=== PATIENT | female | born 1945 | race African-American/Black ===

== ENCOUNTER 2025-01-10 13:51 | Outpatient (AMB) | payer OTHER, SELFPAY ==
--- NOTE | 2025-01-10 14:02 | MHC.OFFVIS ---
Vital Signs 01/10/25 14:04 Height 5 ft 6 in Weight 183 lb 4 oz BMI 29.6 BP 114/70 Blood Pressure Location Lt brachial Position Sitting Pulse 67 Pulse Source Pulse Oximeter Pulse Oximetry (%) 99 Oxygen Delivery Method Room Air Intake Visit Reasons: OA Intake Note: Patient presents today for a follow up for osteoarthritis of the knees. Allergies No Known Allergies Allergy (Verified 01/10/25 14:07) HPI HPI OA: Details: Gel injection wore off earlier in the year. She has difficulty with walking. She uses knee braces. She has takes Tylenol 650 mg 2 tablets during the day for pain relief with benefit. [facility] Medical History (Updated 01/10/25 @ 14:38 by Wilton Linares MD) Primary localized osteoarthritis of knee Family History (Updated 10/08/24 @ 13:19 by Viky Mendez [facility]) Paternal Grandfather Rheumatoid arthritis Social History (Updated 10/08/24 @ 13:20 by Viky Mendez [facility]) Household Members Other:: LIVES ALONE Alcohol intake: never Patient Tobacco Use Status: Never used Tobacco Current occupational status: retired Physical Exam Vital Signs: Last Vital Signs Pulse 67 01/10/25 14:04 BP 114/70 01/10/25 14:04 Pulse Ox 99 01/10/25 14:04 Oxygen Delivery Method Room Air 01/10/25 14:04 BMI result Body Mass Index 29.6 Const Other: General: Comfortable Skin: No lesions seen MSK: Tender to palpate bilateral knees. She has bony hypertrophy bilateral knees. Right knee flexion 45 degrees, left knee flexion 30 degrees. Uses cane to ambulate. Assessment & Plan Assessment & Plan (1) Primary localized osteoarthritis of knee: Comment: Bilateral. Severe osteoarthritis. She failed cortisone injections: CSI B/L 03/2022,11/2021,09/2022,07/2023. She had 8 months of benefit on hyaluronic acid injection Durolane given to her on 09/2024. Pain has progressed since earlier this year with reduced function. Pain is tolerable with Tylenol. Code(s): M17.10 - Unilateral primary osteoarthritis, unspecified knee Category: Medical Plan: Durolane PA bilateral knees Continue Tylenol 650 mg 2 tablets daily. She can increase frequency to Q 8 hourly PRN pain Return to clinic in 1 month or sooner if Durolane is approved Coding Level of Care Code Est Pt Level 3 (57383) Complex EM visit Add On G2211 Diagnoses Primary localized osteoarthritis of knee M17.10
[2025-01-10 14:04] VITALS: BP 114/70; PULSE 67; O2SAT 99; BMI 29.6
--- OUTSIDE RECORDS SUMMARY | 2025-01-10 14:34 | XMS_ITS ---
Author Name [facility] Organization Unknown Encounters Encounter Type Encounter Reason Primary Diagnosis Location Date Ambulatory [facility] [place] 01/04/2024 Ambulatory [facility] [place] 01/04/2024
--- OUTSIDE RECORDS SUMMARY | 2025-01-10 14:34 | XMS_ITS | Clinical Summary ---
Author Organization [facility] [address] [place] [address] [place] [phone] Phone Care Team Providers Care Engrosser Name Role Phone Jennifer Marks MD Primary Care Provider [phone] Allergies Active Allergy Reactions Criticality Noted Date Comments Atorvastatin 11/14/2018 intolerant Lovastatin 11/14/2018 Intolerant Pravastatin 11/14/2018 intolerant Simvastatin 11/14/2018 intolerant Medications rosuvastatin (CRESTOR) 10 mg tablet Take 1 tablet (10 mg total) by mouth at bedtime. 90 tablet 1 05/22/2024 Active aspirin 81 mg EC tablet Take 1 tablet (81 mg total) by mouth 1 (one) time each day. 90 tablet 08/10/2024 Active diclofenac (Cataflam) 50 mg tablet Take 1 tablet (50 mg total) by mouth 2 (two) times a day for 10 days. 20 each 10/03/2024 Active cyclobenzaprine (FLEXERIL) 10 mg tablet Take 1 tablet (10 mg total) by mouth at bedtime as needed for muscle spasms. 30 tablet 10/03/2024 Active indapamide (LOZOL) 2.5 mg tablet Take 1 tablet by mouth once daily 90 tablet 11/27/2024 Active amLODIPine (NORVASC) 10 mg tablet Take 1 tablet by mouth once daily 90 tablet 11/27/2024 Active lisinopril (PRINIVIL,ZESTR IL) 40 mg tablet Take 1 tablet by mouth once daily 90 tablet 11/27/2024 Active potassium chloride (KLOR-CON) 10 mEq CR tablet Take 1 tablet by mouth once daily 90 tablet 11/27/2024 Active celecoxib (CeleBREX) 200 mg capsule Take 1 capsule (200 mg total) by mouth 1 (one) time each day. 30 capsule 2 10/10/2024 01/09/20 25 Active Problems Problem Noted Date Diagnosed Date COVID-19 03/12/2022 Overview (05/30/2024): Home test positive, repeated at [facility] 03/12/22 Prediabetes 02/19/2021 Vitamin D deficiency 12/22/2018 Radiculitis of left cervical region 08/15/2013 Overview (05/30/2024): left C7 dermatome TIA (transient ischemic attack) 04/03/2010 Overview (05/30/2024): ?TIA, R corner mouth numb 03/30/10, neg w/u DJD (degenerative joint disease), lumbar 008 Lipoma 08/23/2007 Osteoarthrosis of knee 08/19/2006 Obesity (BMI 30.0-34.9) 08/17/2005 Essential hypertension, benign 08/10/2005 Hyperlipidemia 08/10/2005 Encounters Date Type Department Care Team Description 12/10/2024 Telephone Adult Medicine [address] [phone] Jennifer Marks MD Fatigue from Last 3 Months Immunizations Name Administration Dates Next Due Influenza Quadravalent, MDCK , 0.5ml, with preservative (Flucelvax) 6mo and older 04/27/2017 Influenza trivalent, 0.5mL ( Fluad) 65yo and older 04/06/2023,03/30/2022,04/10/2021,05/22,03/21/2018 Influenza trivalent, 0.5mL, preservative free (Fluarix; FluLaval; Fluzone) ages 6mo and older (Afluria) 3 years and older 03/06/2015,04/11/2014,03/12/2013,04/14,04/24/2010,03/25/2009,04/22/2008 ,06/10/2006 Influenza trivalent, recombi nant, 0.5mL, preservative free (Flublok) 18yo and older 03/21/2024 Pfizer (ages 12 & older) Biv alent, COVID-19 05/13/2022 Pneumococcal conjugate 13 va lent (Prevnar 13, PCV13) 2mo and older 10/17/2015 Pneumococcal polysaccharide 23 valent (Pneumovax 23) 2yo and older 08/15/2013 Td Tetanus diptheria (Tdvax) 7yo and older 03/21/2018 Tdap Tetanus diptheria acell ular pertussis (Boostrix; Adacel) 7yo and older 08/23/2007 Zoster recombinant (Shingrix ) 19yo and older 06/27/2021,02/05/2020 Surgical History Surgery Date Site/Laterality Comments FLEXIBLE SIGMOIDOSCOPY 01/12/2006 PROCEDURE: HISTORICAL FLEXIBLE SIGMOIDOSCOPY COLONOSCOPY 10/14/2009 PROCEDURE: HISTORICAL COLONOSCOPY; COMMENT: Normal COLONOSCOPY 07/06/2017 PROCEDURE: HISTORICAL COLONOSCOPY; COMMENT: Negative screening examination. TUBAL LIGATION PROCEDURE: HISTORICAL TUBAL LIGATION Medical History Medical History Date Comments Essential hypertension, benign 08/10/2005 D X:Essential hypertension, benign Other and unspecified hyperlipidemia 08/10/2005 DX:Other and unspecified hyperlipidemia Obesity, unspecified 08/17/2005 DX:Obesity, unspecified Special screening for malign ant neoplasms, colon 10/14/2009 DX:Special screening for mal ignant neoplasms, colon Vitamin D deficiency 12/22/2018 DX:Vitamin D deficiency Family History Medical History Relation Name Comments Hypertension Brother Heart attack Daughter 1 Hypertension Daughter 1 No Known Problems Daughter 2 Hypertension Father Stroke Father No Known Problems Maternal Grandfather No Known Problems Maternal Grandmother CABG Mother Cataracts Mother Coronary artery disease Mother No Known Problems Paternal Grandfather No Known Problems Paternal Grandmother Colon cancer Sister 1 Hypertension Sister 1 Hypertension Sister 2 Other: kidney failure Sister 2 No Known Problems Sister 3 Blindness Neg Hx Breast cancer Neg Hx Glaucoma Neg Hx Macular degeneration Neg Hx Ovarian cancer Neg Hx Strabismus Neg Hx Relation Name Status Comments Brother Alive x1, HTN Daughter 1 Daughter 2 Alive Father (Age 83) stroke Maternal Grandfather Maternal Grandmother Mother 84 as of 5, HTN Paternal Grandfather Paternal Grandmother Sister 1 x2, HTN Sister 2 Sister 3 Alive Social History Tobacco Use Types Packs/Day Years Used Date Smoking Tobacco: Never Passive Smoke Exposure: Never Smokeless Tobacco: Never Alcohol Use Standard Drinks/Week Comments No 0 (1 standard drink = 0.6 oz pur e alcohol) Comments No Sex and Gender Information Value Date Recorded Sex Assigned at Not on file Legal Sex Female 6:49 PM EST Gender Identity Not on file Sexual Orientation Not on file Obstetrics History Last Filed Vital Signs Vital Sign Reading Time Taken Comments Blood Pressure 155/88 10/03/2024 2:06 PM EDT Pulse 80 10/03/2024 2:06 PM EDT Temperature 36.7 C (98 F) 10/03/2024 2:06 PM EDT Respiratory Rate 14 09/06/2024 3:33 PM EDT Oxygen Saturation 97% 10/03/2024 2:06 PM EDT Inhaled Oxygen Concentration - - Weight 83.9 kg (185 lb) 10/10/2024 1:47 PM EDT Height 165.1 cm (5' 5 ) 10/10/2024 1:47 PM EDT Body Mass Index 30.79 10/10/2024 1:47 PM EDT Plan of Treatment Upcoming Encounters Date Type Department Care Team (Late st Contact Info) Description 02/06/2025 3:30 PM EDT Office Visit Adult Medicine [address] [phone] Jennifer Marks MD [address] [place] [phone] Health Maintenance Due Date Last Done Comments Falls Risk Assessment 06/05/2022 Hepatitis C Screening 06/05/2022 Osteoporosis Screening (Bone Density Screening) 06/05/2022 Social Influencers of Health Screening 06/05/2022 RSV Immunization Adult Patients (1 - 1-dose 75+ series) 11/23/2022 COVID-19 Vaccine ( season) 2024 05/13/2022, 07/20/2021, 11/11/2020, Additional history exists Depression Screening 08/23/2024 08/23/2023 Medicare Annual Wellness Visit 08/23/2024 08/23/2023 Influenza Vaccine (#1) 2025 4, 04/06/2023, 03/30/2022, Additional history exists Hypertension/CHF/CAD Annual BMP Blood Test 08/10/2025 08/10/2024, 07/28/2022 DTaP,Tdap,and Td Vaccines (3 - Td or Tdap) 03/21/2028 03/21/2018, 08/23/2007 Cholesterol Screening (Lipid Panel) 08/10/2029 08/10/2024, 07/28/2022 Pneumococcal Vaccine: 50+ Years Completed 10/17/2015, 08/15/2013 Colorectal Cancer Screening: Colonoscopy Discontinued 07/06/2017, 10/14/2009, 10/14/2009 Zoster Vaccines Completed 06/27/2021, 02/05/2020 Breast Cancer Screening Discontinued 02/15/20 23, 02/11/2022, 07/30/2020, Additional history exists HIB Vaccines Aged Out No longer eligi ble based on patient's age to complete this topic HPV Vaccines Aged Out No longer eligi ble based on patient's age to complete this topic Hepatitis A Vaccines Aged Out No long er eligible based on patient's age to complete this topic Hepatitis B Vaccines Aged Out No long er eligible based on patient's age to complete this topic IPV Vaccines Aged Out No longer eligi ble based on patient's age to complete this topic MMR Vaccines Aged Out No longer eligi ble based on patient's age to complete this topic Meningococcal ACWY Vaccine Aged Out N o longer eligible based on patient's age to complete this topic Meningococcal B Vaccine Aged Out No l onger eligible based on patient's age to complete this topic RSV Immunization Patients Under 20 months Aged Out No longer eligible based on patient's age to complete this topic Varicella Vaccines Aged Out No longer eligible based on patient's age to complete this topic Procedures Procedure Name Priority Date/Time Associated Diagnosis Comments COMPREHENSIVE METABOLIC PANEL Routine 08/10/2024 2:54 PM EST Essential hypertension, benign LIPID PANEL WITH REFLEX TO DIRECT LDL Routine 08/10/2024 2:54 PM EST Mixed hyperlipidemia HM DEPRESSION SCREENING Routine 08/23/2023 SCREENING MAMMOGRAPHY BI 2-VIEW BREAST INC CAD Routine 02/14/2023 2:47 PM EDT Encounter for screening mammogram for malignant neoplasm of breast COLONOSCOPY Routine 10/14/2009 10:33 AM EDT from Last 3 Months or Most Recently Relevant to Health Maintenance Results * (ABNORMAL) Lipid panel with reflex to direct LDL (08/10/2024 2:54 PM EST) Cholesterol 268(H) 0 - 200 mg/dL LAB CHEMISTRY METHOD 08/10/2024 7:00 PM [facility] Triglycerides 74 0 - 150 mg/dL LAB CHEMISTRY METHOD 08/10/2024 7:00 PM [facility] HDL 107 >=40 mg/dL LAB CHEMISTRY METHOD 08/10/2024 7:00 PM [facility] LDL Calculated 146(H) 0 - 100 mg/dL LAB CHEMISTRY METHOD 08/10/2024 7:00 PM EST [facility] VLDL Cholesterol Ravinder 14.8 mg/dL LAB CHEMISTRY METHOD 08/10/2024 7:00 PM EST [facility] Non HDL Chol. (LDL+VLDL) 161(H) <145 mg/dL LAB CHEMISTRY METHOD 08/10/2024 7:00 PM [facility] Chol/HDL Ratio 2.5 0.0 - 4.4 LAB CHEMISTRY METHOD 08/10/2024 7:00 PM EST [facility] Blood Venous blood specimen / Unknown Venipuncture / Unknown 08/10/2024 2:54 PM EST 08/10/2024 2:54 PM EST us Jennifer Marks MD LAB BLOOD ORDERABLES Final Resul t [facility] [address] [place] [address], * (ABNORMAL) Comprehensive metabolic panel (08/10/2024 2:54 PM EST) Sodium 141 133 - 145 mmol/L LAB CHEMISTRY METHOD 08/10/2024 6:51 PM [facility] Potassium 3.8 3.5 - 5.5 mmol/L LAB CHEMISTRY METHOD 08/10/2024 6:51 PM [facility] Chloride 105 96 - 110 mmol/L LAB CHEMISTRY METHOD 08/10/2024 6:51 PM [facility] CO2 30 21 - 32 mmol/L LAB CHEMISTRY METHOD 08/10/2024 6:51 PM [facility] Anion Gap 6 3 - 11 LAB CHEMISTRY METHOD 08/10/2024 6:51 PM [facility] Glucose 109(H) 70 - 100 mg/dL LAB CHEMISTRY METHOD 08/10/2024 6:51 PM [facility] BUN 12 5 - 25 mg/dL LAB CHEMISTRY METHOD 08/10/2024 6:51 PM [facility] Creatinine 0.75 0.50 - 1.10 mg/dL LAB CHEMISTRY METHOD 08/10/2024 6:51 PM [facility] eGFR 83 >=60 mL/min/1. 73m2 LAB CHEMISTRY METHOD 08/10/2024 6:51 PM [facility] Comment:Calculation based on the Chronic Kidney Disease Epidemiology Collaboration (CKD-EPI) equation refit without adjustment for race. BUN/Creatinine Ratio 16.0 LAB CHEMISTRY METHOD 08/10/2024 6:51 PM [facility] Calcium 10.1 8.5 - 10.5 mg/dL LAB CHEMISTRY METHOD 08/10/2024 6:51 PM [facility] AST (SGOT) 17 10 - 42 unit/L LAB CHEMISTRY METHOD 08/10/2024 6:51 PM [facility] ALT (SGPT) 13 10 - 60 unit/L LAB CHEMISTRY METHOD 08/10/2024 6:51 PM [facility] Alkaline Phosphatase 99 42 - 121 unit/L LAB CHEMISTRY METHOD 08/10/2024 6:51 PM EST [facility] Total Protein 8.0 6.0 - 8.0 g/dL LAB CHEMISTRY METHOD 08/10/2024 6:51 PM EST [facility] Albumin 4.2 3.2 - 5.0 g/dL LAB CHEMISTRY METHOD 08/10/2024 6:51 PM EST [facility] Total Bilirubin 1.0 0.0 - 1.4 mg/dL LAB CHEMISTRY METHOD 08/10/2024 6:51 PM EST [facility] Blood Venous blood specimen / Unknown Venipuncture / Unknown 08/10/2024 2:54 PM EST 08/10/2024 2:54 PM EST Jennifer Marks MD LAB BLOOD ORDERABLES Final Resul t [facility] [address] [place] [address], [place] [phone] * Depression Screening (08/23/2023) Depression Screening Abstracted Historical Provider HEALTH MAINTENANCE Final Result * SCREENING MAMMOGRAPHY BI 2-VIEW BREAST INC CAD (02/14/2023 2:47 PM EDT) Anatomical Region Laterality Modality Radiographic Ivory ging 02/11/2022 3:12 PM EDT Narrative 02/15/2023 9:11 AM EDT This is a summary report. The complete report is available in the patient's medical record. If you cannot access the medical record, please contact the sending organization for a detailed fax or copy. Full field digital screening tomosynthesis mammography, reviewed with CAD and compared to previous. The breasts are composed of fatty and fibroglandular tissue. No suspicious mass, architectural distortion or suspicious calcifications are identified. IMPRESSION: : No mammographic evidence of malignancy. BIRADS 1-Negative; N. 5 year breast cancer risk assessment 1.4 % Lifetime breast cancer risk assessment 2.9 % Breast cancer risk category Low (<15%) Procedure Note Mariana Beaver MD - 08/01/2023 This is a summary report. The complete report is available in thepatient's medical record. If you cannot access the medical record, pleasecontact the sending organization for a detailed fax or copy. Full field digital screening tomosynthesis mammography, reviewed with CADand compared to previous. The breasts are composed of fatty andfibroglandular tissue. No suspicious mass, architectural distortion orsuspicious calcifications are identified. IMPRESSION: : No mammographic evidence of malignancy. BIRADS 1-Negative; N. 5 year breast cancer risk assessment 1.4 % Lifetime breast cancer risk assessment 2.9 % Breast cancer risk category Low (<15%) Eilu MONTE IMG XR PROCEDURES Final Result * COLONOSCOPY (10/14/2009 10:33 AM EDT) Anatomical Region Laterality Modality Endoscopy Historical Provider GI~PROCEDURE ORDERABLES F inal Result from Last 3 Months or Most Recently Relevant to Health Maintenance Insurance [place]ID - [place] [employer] [place] [employer] Care Teams Engrosser Relationship Specialty Start Date End Date Jennifer Marks MD [address] [place] [phone] PCP - General 10/29/22
== END 2025-01-10 14:38 | disposition home or self-care (01) ==
LOC: HO.RHES 13:51
PROVIDERS: PCP Internal Medicine; Visit Provider Internal Medicine Rheumatology
DX: M17.10 Unilateral primary osteoarthritis, unspecified knee (principal)
CPT/HCPCS: 99213; G2211

== ENCOUNTER 2025-02-13 14:32 | Outpatient (AMB) | payer OTHER, SELFPAY ==
[2025-02-13 14:35] VITALS: BP 150/90; PULSE 74; O2SAT 98; BMI 29.7
--- NOTE | 2025-02-13 14:35 | MHC.OFFVIS ---
Vital Signs 02/13/25 14:35 Height 5 ft 6 in Weight 183 lb 13.848 oz BMI 29.7 BP 150/90 H Pulse 74 Pulse Source Pulse Oximeter Pulse Oximetry (%) 98 Oxygen Delivery Method Room Air Intake Visit Reasons: knee pain/Durolane inj/MD Approved Intake Note: Patient presents today for a follow up for osteoarthritis of the knees. Accompanied by: Self / Same As Patient Allergies No Known Allergies Allergy (Verified 02/13/25 14:36) [facility] Medical History Primary localized osteoarthritis of knee Family History Paternal Grandfather Rheumatoid arthritis Social History Household Members Other:: LIVES ALONE Alcohol intake: never Patient Tobacco Use Status: Never used Tobacco Current occupational status: retired Physical Exam Vital Signs: Last Vital Signs Pulse 74 02/13/25 14:35 BP 150/90 H 02/13/25 14:35 Pulse Ox 98 02/13/25 14:35 Oxygen Delivery Method Room Air 02/13/25 14:35 BMI result Body Mass Index 29.7 Const Other: General: Comfortable Skin: No lesions seen MSK: Tender to palpate bilateral knees. She has bony hypertrophy bilateral knees. She has mild effusion of bilateral knees right worse than left. Cool. Right knee flexion 95 degrees, left knee flexion 90 degrees. Uses cane to ambulate. Office Procedures AMB Joint Injection/Aspiration Joint Injection/Aspiration Details: Bilateral knees Prep: site was prepped using aseptic technique Injected: Durolane was injected into each knee using 22 gauge 1-1/2 inch needle Procedure: Informed verbal consent was obtained. The patient tolerated the procedure well. Postprocedure protocol was discussed with patient. Coding 74721 - Bilateral Large Joint Procedure code (CPT) selection complete AMB Joint Injection/Aspiration Coding 64512 - Bilateral Large Joint Procedure code (CPT) selection complete Office Meds Durolane 60 mg/3 mL intra-articular syringe Performing Provider: Wilton Linares MD [place] [facility] Administered by: Wilton Linares MD on 02/13/25 15:31 Dose Route Admin Location Dispensed Lot Number Expiration Date NDC Template Storage Clerk 60 mg intra-articular 3 mL [id number] 05/26/27 [address]-2 [employer] Total Dispensed Waste 3 mL 0 % Durolane 60 mg/3 mL intra-articular syringe Performing Provider: Wilton Linares MD Per[place] [facility] Administered by: Wilton Linares MD on 02/13/25 15:32 Dose Route Admin Location Dispensed Lot Number Expiration Date [facility] Template Storage Clerk 60 mg intra-articular 3 mL [id number] 05/26/27 [address]-4 [employer] Total Dispensed Waste 3 mL 0 % Assessment & Plan Assessment & Plan (1) Primary localized osteoarthritis of knee: Comment: Pain is uncontrolled on Tylenol. Rheumatology history: Bilateral. Severe osteoarthritis. She failed cortisone injections: CSI B/L 03/2022,11/2021,09/2022,07/2023. She had 8 months of benefit on hyaluronic acid injection Durolane given to her on 09/2023. Uses Tylenol 650 mg b.i.d.. Code(s): M17.10 - Unilateral primary osteoarthritis, unspecified knee Category: Medical Plan: Patient received bilateral Durolane injections this visit Continue Tylenol 650 mg b.i.d. RTC 6 months Orders: Orders AMB Joint Injection/Aspiration 02/13/25 M17.10 - Unilateral primary osteoarthritis, unspecified knee AMB Joint Injection/Aspiration 02/13/25 M17.10 - Unilateral primary osteoarthritis, unspecified knee Coding Level of Care Code Est Pt Level 3 (29264) Complex EM visit Add On G2211 Diagnoses Primary localized osteoarthritis of knee M17.10 CPT Codes Coding - 61537 - Bilateral Large Joint: 59825 - Bilateral Large Joint ([id number]) Coding - 93937 - Bilateral Large Joint: 80812 - Bilateral Large Joint ([id number])
--- OUTSIDE RECORDS SUMMARY | 2025-02-13 15:29 | XMS_ITS | Clinical Summary ---
Author Organization [facility] [address] [place] [address] [place] [phone] Phone Care Team Providers Care Safety Investigator Name Role Phone Jennifer Marks MD Primary Care Provider [phone] Allergies Active Allergy Reactions Criticality Noted Date [...] mouth once daily 90 tablet 11/27/2024 Active Active Problems Problem Noted Date Diagnosed Date [...] Care Team Description 12/10/2024 Telephone Adult Medicine [address] [phone] Jennifer Marks MD Fatigue from [...] trivalent, recombi nant, 0.5mL, preservative free (Flublok) 9yo and older 03/21/2024 Pfizer (ages 12 & [...] Care Team (Late st Contact Info) Description 03/05/2025 11:00 AM EDT Office Visit Adult Medicine [address] [phone] Velia Medina PA [address] [place] [phone] Health Maintenance Due Date Last Done Comments Falls Risk Assessment 06/05/2022 Hepatitis C Screening 06/05/2022 Osteoporosis Screening (Bone Density Screening) 06/05/2022 Social Influencers of Health Screening 06/05/2022 RSV Immunization Adult Patients (1 - 1-dose 75+ series) 11/23/2022 COVID-19 Vaccine ( season) 2024 05/13/2022, 07/20/2021, 11/11/2020, Additional history exists Depression Screening 06/27/2024 08/23/2023 Medicare Annual Wellness Visit 08/23/2024 08/23/2023 Influenza Vaccine (#1) 2025 , 04/06/2023, 03/30/2022, Additional history exists Hypertension/CHF/CAD Annual BMP Blood Test 08/10/2025 08/10/2024, 07/28/2022 DTaP,Tdap,and Td Vaccines (3 - Td or Tdap) 03/21/2028 03/21/2018, 08/23/2007 Cholesterol Screening (Lipid Panel) 08/10/2029 08/10/2024, 07/28/2022 Pneumococcal Vaccine: 50+ Years Completed 10/17/2015, 08/15/2013 Colorectal Cancer Screening: Colonoscopy Discontinued 07/06/2017, 10/14/2009, 10/14/2009 Zoster Vaccines Completed 06/27/2021, 02/05/2020 Breast Cancer Screening Discontinued 02/15/20, 02/11/2022, 07/30/2020, Additional history exists HIB Vaccines [...] LAB CHEMISTRY METHOD 08/10/2024 7:00 PM EST [facility] Triglycerides 74 0 - 150 mg/dL LAB CHEMISTRY METHOD 08/10/2024 7:00 PM EST [facility] HDL 107 >=40 mg/dL LAB CHEMISTRY METHOD 08/10/2024 7:00 PM EST [facility] LDL Calculated 146(H) 0 - 100 mg/dL LAB CHEMISTRY METHOD 08/10/2024 7:00 PM [facility] VLDL Cholesterol Ravinder 14.8 mg/dL LAB CHEMISTRY METHOD 08/10/2024 7:00 PM EST [facility] Non HDL Chol. (LDL+VLDL) 161(H) <145 mg/dL LAB CHEMISTRY METHOD 08/10/2024 7:00 PM EST [facility] Chol/HDL Ratio 2.5 0.0 - 4.4 LAB CHEMISTRY METHOD 08/10/2024 7:00 PM EST [facility] Blood Venous blood specimen / Unknown Venipuncture / Unknown 08/10/2024 2:54 PM EST 08/10/2024 2:54 PM EST us Jennifer Marks MD LAB BLOOD ORDERABLES Final Resul t [facility] [address] [place] [address], * (ABNORMAL) Comprehensive metabolic panel (08/10/2024 2:54 PM EST) Sodium 141 133 - 145 mmol/L LAB CHEMISTRY METHOD 08/10/2024 6:51 PM EST [facility] Potassium 3.8 3.5 - 5.5 mmol/L LAB CHEMISTRY METHOD 08/10/2024 6:51 PM [facility] Chloride 105 96 - 110 mmol/L LAB CHEMISTRY METHOD 08/10/2024 6:51 PM [facility] CO2 30 21 - 32 mmol/L LAB CHEMISTRY METHOD 08/10/2024 6:51 PM [facility] Anion Gap 6 3 - 11 LAB CHEMISTRY METHOD 08/10/2024 6:51 PM [facility] Glucose 109(H) 70 - 100 mg/dL LAB CHEMISTRY METHOD 08/10/2024 6:51 PM [facility] BUN 12 5 - 25 mg/dL LAB CHEMISTRY METHOD 08/10/2024 6:51 PM [facility] Creatinine 0.75 0.50 - 1.10 mg/dL LAB CHEMISTRY METHOD 08/10/2024 6:51 PM [facility] eGFR 83 >=60 mL/min/1. 73m2 LAB CHEMISTRY METHOD 08/10/2024 6:51 PM [facility] Comment:Calculation based on the Chronic Kidney Disease Epidemiology Collaboration (CKD-EPI) equation refit without adjustment for race. BUN/Creatinine Ratio 16.0 LAB CHEMISTRY METHOD 08/10/2024 6:51 PM [facility] Calcium 10.1 8.5 - 10.5 mg/dL LAB CHEMISTRY METHOD 08/10/2024 6:51 PM [facility] AST (SGOT) 17 10 - 42 unit/L LAB CHEMISTRY METHOD 08/10/2024 6:51 PM [facility] ALT (SGPT) 13 10 - 60 unit/L LAB CHEMISTRY METHOD 08/10/2024 6:51 PM [facility] Alkaline Phosphatase 99 42 - 121 unit/L LAB CHEMISTRY METHOD 08/10/2024 6:51 PM [facility] Total Protein 8.0 6.0 - 8.0 g/dL LAB CHEMISTRY METHOD 08/10/2024 6:51 PM EST [facility] Albumin 4.2 3.2 - 5.0 g/dL LAB CHEMISTRY METHOD 08/10/2024 6:51 PM EST [facility] Total Bilirubin 1.0 0.0 - 1.4 mg/dL LAB CHEMISTRY METHOD 08/10/2024 6:51 PM EST [facility] Blood Venous blood specimen / Unknown Venipuncture / Unknown 08/10/2024 2:54 PM EST 08/10/2024 2:54 PM EST Jennifer Marks MD LAB BLOOD ORDERABLES Final Resul t [facility] [address] [place] [address], [place] [phone] * Depression Screening (08/23/2023) Depression Screening Abstracted [...] field digital screening tomosynthesis mammography, reviewed with Noé compared to previous. The breasts are composed of fatty andfibroglandular tissue. No suspicious mass, architectural distortion orsuspicious calcifications are identified. IMPRESSION: : No mammographic evidence of malignancy. BIRADS 1-Negative; N. 5 year breast cancer risk assessment 1.4 % Lifetime breast cancer risk assessment 2.9 % Breast cancer risk category Low (<15%) Eliu MONTE IMG XR PROCEDURES Final Result * COLONOSCOPY (10/14/2009 10:33 AM EDT) Anatomical Region Laterality Modality Endoscopy Historical Provider GI~PROCEDURE ORDERABLES F inal Result from Last 3 Months or Most Recently Relevant to Health Maintenance Insurance MEDICAID - [place] [employer] [place] [employer]AGE Care Teams Safety Investigator Relationship Specialty Start Date End Date Jennifer Marks MD [address] [place] [address] PCP - General 10/29/22
== END 2025-02-13 15:15 | disposition home or self-care (01) ==
LOC: HO.RHES 14:32
PROVIDERS: PCP Internal Medicine; Visit Provider Internal Medicine Rheumatology
DX: M17.10 Unilateral primary osteoarthritis, unspecified knee (principal)
CPT/HCPCS: 20610; 99213; G2211

== ENCOUNTER → 2025-02-13 14:32 | Outpatient (BNVA) | payer OTHER, SELFPAY | PROVIDERS: PCP Internal Medicine; Visit Provider Internal Medicine Rheumatology | DX: M17.0 Bilateral primary osteoarthritis of knee (principal) | CPT/HCPCS: 20610; J7318 ==